=== PATIENT | female | born 1995 | race Caucasian/White ===

== ENCOUNTER → 2016-09-17 20:33 | Emergency (ER) | payer SELFPAY ==
--- NOTE | 2016-09-17 20:33 | NUR ---
PATIENT LEFT WITHOUT BEING SEEN BY DR. GLASS. NO FURTHER CARE PROVIDED FOR PATIENT.
== END | disposition left against medical advice (07) ==
LOC: MED 20:33
DX: M79.673 Pain in unspecified foot (principal); Z53.21 Procedure and treatment not carried out due to patient leaving prior to being seen by health care provider